=== PATIENT | male | born 1995 | race Caucasian/White ===

== ENCOUNTER 2023-11-08 20:26 | Emergency (ER) | payer MEDICAID ==
[~2023-11-08] VITALS: Ht 180.3 cm; Wt 134.0 kg
[2023-11-08 20:27] VITALS: PULSE 89
[2023-11-08 20:37] VITALS: BP 123/63; RESP 18; TEMP 98.3; O2SAT 98
[2023-11-08] MEDS: LIDOCAINE HCL/PF 1% 10 MG/ML 5ML VIAL INFIL ONE (22:00)
[2023-11-08] MEDS: BACITRACIN ZINC OINT UDPKT TOP ONE (22:08)
[2023-11-08] MEDS: TETANUS, DIPHTHERIA, PERTUSSIS VAC/PF 0.5ML (>10YR OLD) IM ONE (22:10)
[2023-11-08] MEDS ORDERED: BO1 TP (22:43)
== END 2023-11-08 22:51 | disposition home or self-care (01) ==
LOC: ER 20:26
DX: S61.215A Laceration without foreign body of left ring finger without damage to nail, initial encounter (principal); X58.XXXA Exposure to other specified factors, initial encounter; Y93.89 Activity, other specified; Y92.89 Other specified places as the place of occurrence of the external cause; Y99.8 Other external cause status
CPT/HCPCS: 90715; 12002; 90471; 99283; J3490; Z7610 ×2